=== PATIENT | male | born 1980 ===

== ENCOUNTER → 2018-10-18 | Outpatient (CLI) | payer OTHER ==
[~2018-10-18] MED LIST: CYCL10TA29 PO; DIA5 PO; DOCU-416 PO; HYDR-385 PO; HYDR25SU51 RC; KET10 PO; METH4TAB66 PO; NABU-95 PO; OXYC-856 PO; OXYC-865 PO; SENN-287 PO
[2018-10-18 13:38] LABS: PLATELET COUNT, AUTOMATED 297 K/uL (150-450)
--- NOTE | 2018-10-18 15:30 | RADIOLOGY IMAGING REPORT ---
FACILITY: [facility] - [place] PATIENT NAME: Valentin Easton : 1980 MR: [id number] V: [id number] EXAM DATE: ORDERING PHYSICIAN: JOSEPH DUMONT TECHNOLOGIST: Location[place] [facility] [place] Patient: Valentin Easton : 1980 Visit/Account:[id number] Date of Sevice: 10/18/2018 Exam type: ACUTE ABDOMEN SERIES 3 VIEW History: Bleeding per rectum, right lower abdomen pain Comparison: Arch 2013. Findings: Supine and upright views the abdomen demonstrates a paucity of bowel gas. A few air-fluid levels are seen in the nondistended right-sided colon and in the stomach. There is no demonstration of free in traperitoneal air beneath hemidiaphragms. No evidence of organomegaly or pathologic intradermal calc ifications are seen. The visualized bones are grossly unremarkable. PA view the chest reveals no evidence of pulmonary consolidation, pleural effusions or pulmonary kathleen a. The cardiac silhouette is normal in size. IMPRESSION: 1. There is a paucity of bowel gas seen throughout the abdomen with a few air-fluid levels identifie d in the nondistended right-sided the colon. Unremarkable PA view the chest Report Dictated By: Sarah Romero MD at 10/18/2018 3:22 PM Report E-Signed By: Sarah Romero MD at 10/18/2018 3:24 PM WSN:[email or web address]
== END ==
LOC: LAB 13:19
PROVIDERS: ATTEND Internal Medicine
DX: K62.5 Hemorrhage of anus and rectum (principal); R10.9 Unspecified abdominal pain
CPT/HCPCS: 36415; 74022; 81001; 82040; 82150; 82247; 82274; 82310; 82374; 82435; 82565; 82947; 83690; 84075; 84132; 84155; 84295; 84443; 84450; 84460; 84520; 85025

== ENCOUNTER → 2019-04-03 | Outpatient (CLI) | payer OTHER ==
[2019-04-03 09:18] LABS: PLATELET COUNT, AUTOMATED 261 K/uL (150-450)
[2019-04-03 15:08] LABS: LDL CHOLESTEROL 130 mg/dl
== END ==
LOC: LAB 08:31
PROVIDERS: ATTEND Chiropractor
DX: R53.83 Other fatigue (principal); R63.8 Other symptoms and signs concerning food and fluid intake
CPT/HCPCS: 36415; 82040; 82247; 82306; 82310; 82374; 82435; 82465; 82565; 82728; 82947; 82977; 83036; 83525; 83540; 83718; 83735; 84075; 84132; 84155; 84295; 84436; 84439; 84443; 84450; 84460; 84478; 84479; 84480; 84481; 84482; 84520; 84550; 85025; 85384; 86038; 86141; 86376; 86800

== ENCOUNTER 2019-04-21 16:13 | Emergency (ER) | payer OTHER ==
--- NOTE | 2019-04-21 16:24 | ER Report ---
History and Physical Time Seen By MD: 16:21 Hx. of Stated Complaint: ACUTE ON CHRONIC LOW BACK PAIN X 24 HRS. STATES "EXTENSIVE" BACK SURG 2014. DENIES NEW INJURY OR ACTIVITY HPI/ROS CHIEF COMPLAINT: Back pain HISTORY OF PRESENT ILLNESS: 38-year-old male patient presents to emergency room with complaint of back pain. Patient states that he has a long-standing history of chronic back pain. He states he's had back problems for the past 8 years. He states he had surgery in 2013. He states that since then he's been having intermittent back pain. Patient states that he has been having significant amounts of back pain for the past couple of days. He states that he was sitting in his recliner when he felt his back start to hurt. He states that he went in and laid down in his bed. He states when he did that he felt this popping sensation in his back. He states the got out of bed immediately laid on the floor and laid there for several hours. Patient states that since then he's been having pain with any type of movement. He states the pain currently is a 7 out of 10. He denies any current injury. He states that he has not been working for the past several months. He denies any fevers, chills, nausea, vomiting or diarrhea. REVIEW OF SYSTEMS: Respiratory: No cough, no dyspnea. Cardiovascular: No chest pain, no palpitations. Gastrointestinal: No vomiting, no abdominal pain. Musculoskeletal: As noted above Allergies: Coded Allergies: No Known Drug Allergies (Unverified , 08/01/14) Home Meds Active Scripts Tramadol Hcl (TRAMADOL HCL) 50 Mg Tablet, 50 MG PO Q4-6H PRN for PAIN, #12 TAB Prov:KIKE FIELDS 04/21/19 Lorazepam (ATIVAN) 0.5 Mg Tablet, 0.5 MG PO TID PRN for MUSCLE SPASMS, #10 TAB Prov:KIKE FIELDS 04/21/19 Discontinued Reported Medications Docusate Sodium (COLACE) 100 Mg Capsule, 100 MG PO QDAY PRN for constipation, CAPSULE 10/18/18 Discontinued Scripts Hydrocortisone Acetate (ANUSOL-HC) 25 Mg Supp.rect, 25 MG RC 2-3XD, #40 SUPP.RECT Prov:JOSEPH DUMONT MD 10/19/18 Past Medical/Surgical History Patient has a past medical history of pneumonia, back pain. Patient has a surgical history of laminectomy. Reviewed Nurses Notes: Yes Hx Smoking: No Smoking Status: Former Smoker Hx Substance Use Disorder: No Hx Alcohol Use: No Constitutional Vital Sign - Last 24 Hours 04/21/19 04/21/19 16:19 17:31 Temp 97.9 Pulse 80 98 Resp 16 18 B/P (MAP) 143/110 140/92 (108) Pulse Ox 99 94 O2 Delivery Room Air Room Air Physical Exam General Appearance: The patient is alert, has no immediate need for airway protection and no current signs of toxicity. Respiratory: Chest is non tender, lungs are clear to auscultation. Cardiac: regular rate and rhythm Gastrointestinal: Abdomen is soft and non tender, no masses, bowel sounds normal. Musculoskeletal: Neck: Neck is supple and non tender. Back: No obvious tenderness to palpation, there is no step-offs, no deformities. Extremities have full range of motion and are non tender. Skin: No rashes or lesions. DIFFERENTIAL DIAGNOSIS: After history and physical exam differential diagnosis was considered for muscle spasms, acute on chronic back pain, fracture, subluxation. Medical Decision Making EKG/Imaging Imaging L-SPINE >4 VIEWS INDICATION: Low back pain. No known injury. COMPARISON: None available FINDINGS: 5 views of the lumbar spine. There are 5 nonrib-bearing lumbar vertebral bodies. The vertebral bodies are aligned. No compression fractures, bony lesions or spondylolysis. The L4-5 level shows minimal degenerative changes with mild disc space narrowing, small osteophytes. No other significant degenerative changes. The endplates are maintained. The pedicles well seen. IMPRESSION: No acute abnormality. Minimal degenerative changes at L4-5. Report Dictated By: Sukhi Reynoso at 04/21/2019 5:02 PM Report E-Signed By: Sukhi Reynoso at 04/21/2019 5:04 PM SACROILIAC JOINT 3 OR > VIEWS INDICATION: Low back pain. No known injury. COMPARISON: None available FINDINGS: 2 views of the SI joints. The bilateral SI joints are symmetric. No widening or sclerosis. No osteophytes. No bony lesions. No indication of fractures. Soft tissues are unremarkable. IMPRESSION: Normal exam. Report Dictated By: Sukhi Reynoso at 04/21/2019 5:05 PM Report E-Signed By: Sukhi Reynoso at 04/21/2019 5:06 PM ED Course/Re-evaluation ED Course Patient is admitted and examined, history and physical obtained. Differential diagnoses were considered. On examination lungs are clear, heart is regular, abdomen soft nontender. Patient had no obvious tenderness to palpation of the lumbar spine. An x-ray was done of the lumbar spine as well as SI joints. There are no acute findings noted. Discussed the results with the patient and his . With the patient having pain, but also having elevated liver enzymes per his primary care provider I believe that we will go ahead and do tramadol for pain. He may take ibuprofen for that but no Tylenol. We will also do some Ativan to help with muscle spasms. It is my thought that muscle spasms are likely the underlying cause of his discomfort. He is follow-up with his primary care provider in the next week. He is return to emergency room if condition worsens. Patient verbalized understanding and agreement with plan. Decision to Disposition Date: Apr 21, 2019 Decision to Disposition Time: 17:20 Depart Departure Latest Vital Signs Vital Signs Date Time Temp Pulse Resp B/P (MAP) Pulse Ox O2 Delivery O2 Flow Rate FiO2 04/21/19 17:31 98 18 140/92 (108) 94 Room Air 04/21/19 16:19 97.9 Impression: Primary Impression: Low back pain Additional Impression: Acute exacerbation of chronic low back pain Condition: Improved Disposition: HOME OR SELF-CARE Referrals: ISAAC SOLORZANO DC (PCP) New Scripts Tramadol Hcl (TRAMADOL HCL) 50 Mg Tablet 50 MG PO Q4-6H PRN for PAIN, #12 TAB Prov: KIKE FIELDS 04/21/19 Lorazepam (ATIVAN) 0.5 Mg Tablet 0.5 MG PO TID PRN for MUSCLE SPASMS, #10 TAB Prov: KIKE FIELDS 04/21/19 Patient Instructions: Back Pain (ED) Additional Instructions: Limit activity by pain. Alternate ice and heat to your back. Get plenty of rest. No heavy lifting. Make sure that you are getting up and doing low impact aerobic activity; ie walking. Follow up with your primary care provider in the next week. Return to the ER if condition worsens. Problem Qualifiers Primary Impression: Low back pain Chronicity: acute Back pain laterality: bilateral Sciatica presence: with sciatica Sciatica laterality: sciatica of right side Qualified Codes: M54.41 - Lumbago with sciatica, right side KIKE FIELDS [employer] Apr 21, 2019 16:24
--- NOTE | 2019-04-21 17:11 | RADIOLOGY IMAGING REPORT ---
FACILITY: [facility] [place] PATIENT NAME: Valentin Easton : 1980 MR: [id number] V: [id number] EXAM DATE: ORDERING PHYSICIAN: KIKE FIELDS TECHNOLOGIST: Location: [facility] - [place] Patient: Valentin Easton : 1980 Visit/Account:[id number] Date of Sevice: 04/21/2019 L-SPINE >4 VIEWS INDICATION: Low back pain. No known injury. COMPARISON: None available FINDINGS: 5 views of the lumbar spine. There are 5 nonrib-bearing lumbar vertebral bodies. The vert ebral bodies are aligned. No compression fractures, bony lesions or spondylolysis. The L4-5 level doug ws minimal degenerative changes with mild disc space narrowing, small osteophytes. No other significa nt degenerative changes. The endplates are maintained. The pedicles well seen. IMPRESSION: No acute abnormality. Minimal degenerative changes at L4-5. Report Dictated By: Sukhi Reynoso at 04/21/2019 5:02 PM Report E-Signed By: Sukhi Reynoso at 04/21/2019 5:04 PM WSN:[id number]
--- NOTE | 2019-04-21 17:12 | RADIOLOGY IMAGING REPORT ---
FACILITY: [facility] - [place] PATIENT NAME: Valentin Easton : 1980 MR: [id number] V: [id number] EXAM DATE: ORDERING PHYSICIAN: KIKE FIELDS TECHNOLOGIST: Location: [facility] - [place] Patient: Valentin Easton : 1980 Visit/Account:[id number] Date of Sevice: 04/21/2019 SACROILIAC JOINT 3 OR > VIEWS INDICATION: Low back pain. No known injury. COMPARISON: None available FINDINGS: 2 views of the SI joints. The bilateral SI joints are symmetric. No widening or sclerosis . No osteophytes. No bony lesions. No indication of fractures. Soft tissues are unremarkable. IMPRESSION: Normal exam. Report Dictated By: Sukhi Reynoso at 04/21/2019 5:05 PM Report E-Signed By: Sukhi Reynoso at 04/21/2019 5:06 PM WSN:[id number]
[2019-04-21] MEDS ORDERED: TRAM-420 PO (17:22)
[2019-04-21] MEDS ORDERED: LORA-1455 PO (17:22)
[2019-04-21 17:31] VITALS: BP 140/92
== END 2019-04-21 17:33 | disposition home or self-care (01) ==
LOC: ER 16:33
DX: M54.41 Lumbago with sciatica, right side (principal); Z87.891 Personal history of nicotine dependence
CPT/HCPCS: 72120; 72202; 99284

== ENCOUNTER 2019-04-26 09:25 | Emergency (ER) | payer OTHER ==
[~2019-04-26 09:25] MED LIST changes: +LORA-1455 PO; +TRAM-420 PO
[2019-04-26 09:32] VITALS: BP 138/99
[2019-04-26] MEDS ORDERED: KETOROLAC 60 MG/2 ML VIAL IM ONE (10:25)
[2019-04-26] MEDS ORDERED: DIAZEPAM 5 MG TAB PO ONE (10:25)
[2019-04-26] MEDS ORDERED: DIA5 PO (10:30)
--- NOTE | 2019-04-26 10:31 | ER Report ---
History and Physical Time Seen By MD: 10:05 Hx. of Stated Complaint: continued low back pain HPI/ROS CHIEF COMPLAINT: Back pain HISTORY OF PRESENT ILLNESS: 38-year-old male presents with back pain. Patient states that he has gone through this multiple times. He was last seen 2 weeks ago after exacerbating his chronic back pain. He improved significantly however this morning does not remember what he was doing but had sudden back pain again. Pain is right lumbar. Pain does not radiate past knee. He has no new incontinence, weakness, numbness. Pain is severe. Patient has not taken medications for this pain. He states that muscle relaxants he was given last time worked but he is out of them. He was also prescribed tramadol but does not want to use this as he does not tolerate it well. Patient has no fevers or chills. Patient has follow-up with spine surgeon. Patient is status post laminectomy in 2003 and has had continued intermittent pain since that time. Patient has no new trauma. REVIEW OF SYSTEMS: Constitutional: No fever, no chills. Eyes: No discharge. ENT: No sore throat. Cardiovascular: No chest pain, no palpitations. Respiratory: No cough, no shortness of breath. Gastrointestinal: No abdominal pain, no vomiting. Genitourinary: No hematuria. Musculoskeletal: above Skin: No rashes. Neurological: No headache. Remainder of the 14 system rev: Yes Allergies: Coded Allergies: No Known Drug Allergies (Unverified , 04/26/19) Home Meds Active Scripts Tramadol Hcl (TRAMADOL HCL) 50 Mg Tablet, 50 MG PO Q4-6H PRN for PAIN, #12 TAB Prov:KIKE FIELDS 04/21/19 Lorazepam (ATIVAN) 0.5 Mg Tablet, 0.5 MG PO TID PRN for MUSCLE SPASMS, #10 TAB Prov:KIKE FIELDS 04/21/19 Discontinued Reported Medications Docusate Sodium (COLACE) 100 Mg Capsule, 100 MG PO QDAY PRN for constipation, CAPSULE 10/18/18 Discontinued Scripts Hydrocortisone Acetate (ANUSOL-HC) 25 Mg Supp.rect, 25 MG RC 2-3XD, #40 SUPP.RECT Prov:JOSEPH DUMONT MD 10/19/18 Reviewed Nurses Notes: Yes Old Medical Records Reviewed: Yes Hx Smoking: No Smoking Status: Former Smoker Hx Substance Use Disorder: No Hx Alcohol Use: No Constitutional Vital Sign - Last 24 Hours 04/26/19 09:32 Temp 98.3 Pulse 100 Resp 18 B/P (MAP) 138/99 Pulse Ox 97 O2 Delivery Room Air Physical Exam General Appearance: The patient is alert, has no immediate need for airway protection and no signs of toxicity. Eyes: Pupils equal and round no pallor or injection. ENT, Mouth: Mucous membranes are moist. Respiratory: normal respirations Cardiovascular: Regular rate and rhythm. Gastrointestinal: Abdomen is soft and non tender, no masses, bowel sounds normal. Neurological: alert, oriented, no gross deficits Skin: Warm and dry, no rashes. Musculoskeletal: pt has ttp l3-5, and r paraspinal ttp. No stepoffs. 5/5 le strenght DIFFERENTIAL DIAGNOSIS: After history and physical exam differential diagnosis was considered for back pain including but not limited to muscular pain, herniated disc, spine fracture, intra-abdominal causes and urinary tract in fection, cauda equina. Medical Decision Making ED Course/Re-evaluation ED Course Pt presents with pain similar to multiple prior incidents. Has muscle spasm; noted mdline ttp though this is nl for pt and had xray last time with similar exam that was unremarkable. no e/o cauda equina, and doubt fx, tumor, infection, or renal/aaa pathology. Improves in ED with valum/toradol. Will d/c with valium and pt understands r/b of this medication. Decision to Disposition Date: Apr 26, 2019 Decision to Disposition Time: 10:26 Depart Departure Latest Vital Signs Vital Signs Date Time Temp Pulse Resp B/P (MAP) Pulse Ox O2 Delivery O2 Flow Rate FiO2 04/26/19 09:32 98.3 100 18 138/99 97 Room Air Impression: Primary Impression: Low back pain Condition: Improved Disposition: HOME OR SELF-CARE Referrals: ISAAC SOLORZANO DC (PCP) 5 Days New Scripts Diazepam (VALIUM) 5 Mg Tablet 5 MG PO Q8H for Muscle Relaxant, #10 TAB Prov: DARLIN TOURE MD 04/26/19 Patient Instructions: Acute Low Back Pain (ED) Additional Instructions: Return for new weakness, numbness, or any concerns. Follow up as scheduled. Problem Qualifiers Primary Impression: Low back pain Chronicity: acute Back pain laterality: right Sciatica presence: without sciatica Qualified Codes: M54.5 - Low back pain DARLIN TOURE MD Apr 26, 2019 10:31
== END 2019-04-26 11:18 | disposition home or self-care (01) ==
LOC: ER 10:18
DX: M54.5 Low back pain (principal); M62.830 Muscle spasm of back
CPT/HCPCS: 96372; 99283; J1885